=== PATIENT | male | born 1960 | race Caucasian/White ===

== ENCOUNTER 2017-09-26 10:35 | Day surgery (SDC) | END 2017-09-26 13:56 | disposition home or self-care (01) ==

== ENCOUNTER 2017-12-18 12:53 | Observation (INO) | END 2017-12-19 16:10 | disposition home or self-care (01) ==

== ENCOUNTER 2018-01-17 08:41 | Day surgery (SDC) | END 2018-01-17 15:55 | disposition home or self-care (01) ==

== ENCOUNTER 2018-04-10 21:00 | Inpatient (IN) | END 2018-04-23 15:28 | disposition home health service (06) | DRG 617 ==